=== PATIENT | female | born 1955 | race Caucasian/White ===

== ENCOUNTER 2021-02-06 19:12 | Emergency (ER) | payer OTHER ==
[2021-02-06 19:25] VITALS: BP 130/86; PULSE 92; TEMP 100.2; BMI 19.8
== END 2021-02-06 21:00 | disposition left against medical advice (07) ==
LOC: JER 19:12
DX: R07.89 Other chest pain (principal)
CPT/HCPCS: 93005; 93010; 99283-25

== ENCOUNTER 2023-10-26 18:44 | Emergency (ER) | payer OTHER ==
[2023-10-26 18:50] VITALS: BP 116/73; PULSE 60; RESP 18; TEMP 97.6; BMI 20.5
[2023-10-26 21:34] LABS: BASO % 1.4 % (0-2.0); EOS % 2.4 % (0-4.5); HEMATOCRIT 40.7 % (32.4-45.2); HEMOGLOBIN 13.9 GM/dL (10.7-15.3); LYMPH % 29.9 % (8-40); MCH 30.1 pg (25.7-33.7); MCHC 34.1 g/dl (32.0-36.0); MEAN CELL VOLUME 88.3 fl (80-96); MEAN PLT VOLUME 9.8 fl (7.5-11.1); NEUT % 57.3 % (42.8-82.8); PLATELET COUNT 216 10^3/uL (134-434); RBC 4.61 M/mm3 (3.60-5.2); RDW 13.4 % (11.6-15.6); WHITE BLOOD COUNT 4.6 K/mm3 (4.0-10.0)
[2023-10-26] MEDS: SODIUM CHLORIDE 1,000 ML IV STA (21:45)
[2023-10-26 22:02] LABS: POTASSIUM 4.3 mmol/L (3.5-5.1)
[2023-10-26 22:04] LABS: CALCIUM 9.1 mg/dL (8.5-10.1)
[2023-10-26 22:05] LABS: ALBUMIN 3.9 g/dl (3.4-5.0); BLOOD UREA NITROGEN 6.1 mg/dL (7-18)
[2023-10-26 22:08] LABS: CREATININE 0.5 mg/dL (0.55-1.3)
[2023-10-26 22:10] LABS: BILIRUBIN,TOTAL 0.3 mg/dL (0.2-1)
== END 2023-10-26 23:00 | disposition home or self-care (01) ==
LOC: JER 18:44
PROC: 3E0337Z Introduction of Electrolytic and Water Balance Substance into Peripheral Vein, Percutaneous Approach (ICD-10-PCS; principal; 2023-10-26)
DX: R19.7 Diarrhea, unspecified (principal); Z20.822 Contact with and (suspected) exposure to COVID-19
CPT/HCPCS: 0241U-QW; 36415; 80053; 85025; 99284-25